=== PATIENT | male | born 1945 | race Caucasian/White ===

== ENCOUNTER 2020-09-30 15:08 | Observation (INO) | payer OTHER ==
[~2020-09-30] VITALS: Ht 172.7 cm; Wt 97.5 kg
[~2020-09-30 15:08] MED LIST: ARICEPT10 MG PO; BENTYL 10MG CAP10 MG PO; CYANOCOBAL1000 MCG/1 INJ; ECOTRIN81 MG PO; FISH OIL 1,0001 EACH PO; FLOMAX0.4 MG PO; MECLIZINE HCL25 MG PO; NORCO 5-325 TA1 EACH PO; PROTONIX40 MG PO; ZOCOR40 MG PO
[2020-09-30 16:24] LABS: HEMOGLOBIN 12.5 gm/dl (14.0-17.5); RED BLOOD COUNT 4.47 M/UL (4.20-5.50); WHITE BLOOD COUNT 6.4 K/UL (4.5-11.0)
[2020-09-30 16:45] LABS: BUN/CREATININE RATIO 13 (0-10)
[2020-09-30] MEDS ORDERED: CRESTOR20 MG PO (20:12)
[2020-09-30] MEDS ORDERED: GLUCOPHAGE 500500 MG PO (20:13)
[2020-09-30] MEDS ORDERED: GABAPENTIN300 MG PO (20:14)
[2020-09-30] MEDS ORDERED: NAMENDA10 MG PO (20:16)
[2020-09-30] MEDS ORDERED: FINASTERIDE5 MG PO (20:16)
[2020-09-30] MEDS ORDERED: NAPROXEN375 MG PO (20:18)
[2020-10-01 04:40] LABS: RED BLOOD COUNT 4.34 M/UL (4.20-5.50); WHITE BLOOD COUNT 6.2 K/UL (4.5-11.0)
[2020-10-01 05:22] LABS: BUN/CREATININE RATIO 16 (0-10)
[2020-10-02] MEDS ORDERED: GABAPENTIN100 MG PO (12:48)
== END 2020-10-02 16:25 | disposition home or self-care (01) ==
LOC: ER1 15:08 → MED SURG 4 17:41 → CDU 17:41 → MED SURG 4 18:26
PROVIDERS: Physician Assistant Medical; Preventive Medicine Occupational Medicine; ADMIT Internal Medicine
DX: R53.83 Other fatigue (principal); R53.1 Weakness; R82.5 Elevated urine levels of drugs, medicaments and biological substances; R31.9 Hematuria, unspecified; F03.90 Unspecified dementia, unspecified severity, without behavioral disturbance, psychotic disturbance, mood disturbance, and anxiety; E78.5 Hyperlipidemia, unspecified; E11.9 Type 2 diabetes mellitus without complications; N40.0 Benign prostatic hyperplasia without lower urinary tract symptoms; E66.9 Obesity, unspecified; Z68.32 Body mass index [BMI] 32.0-32.9, adult; Z20.822 Contact with and (suspected) exposure to COVID-19; Z79.82 Long term (current) use of aspirin; Z79.899 Other long term (current) drug therapy; Z79.84 Long term (current) use of oral hypoglycemic drugs
CPT/HCPCS: ECHO; 36415; 70450; 70551; 71045; 72100; 80048; 80053; 80307; 81001; 82533; 82550; 82553; 82962; 83036; 83690; 83735; 83874; 83880; 84439; 84443; 84484; 85025; 85027; 85652; 86140; 87086; 93005; 93306; 93880; 97162; 99285; G0378; U0002

== ENCOUNTER → 2021-03-31 | Outpatient (CLI) | payer MEDICARE, OTHER ==
[~2021-03-31] MED LIST changes: +CRESTOR20 MG PO; +FINASTERIDE5 MG PO; +GABAPENTIN100 MG PO; +GABAPENTIN300 MG PO; +GLUCOPHAGE 500500 MG PO; +NAMENDA10 MG PO; +NAPROXEN375 MG PO
== END ==
LOC: KOH-I 10:51
DX: R31.9 Hematuria, unspecified (principal)
CPT/HCPCS: 74018

== ENCOUNTER → 2021-04-22 | Day surgery (SDC) | payer MEDICARE, OTHER ==
[~2021-04-22] MED LIST changes: +MAGNESIUM400 MG PO; +MUCINEX600 MG PO; +VITAMIN D350 MCG PO; +ZINC50 M2 PO; +ZYRTEC10 M3 PO
== END | disposition home or self-care (01) ==
LOC: OR 06:27
PROVIDERS: Surgery
PROC: 0DJD8ZZ Inspection of Lower Intestinal Tract, Via Natural or Artificial Opening Endoscopic (ICD-10-PCS; principal; 2021-04-22 07:30)
DX: Z12.11 Encounter for screening for malignant neoplasm of colon (principal); K21.9 Gastro-esophageal reflux disease without esophagitis; I10 Essential (primary) hypertension; F03.90 Unspecified dementia, unspecified severity, without behavioral disturbance, psychotic disturbance, mood disturbance, and anxiety; N40.1 Benign prostatic hyperplasia with lower urinary tract symptoms; R33.8 Other retention of urine; E78.00 Pure hypercholesterolemia, unspecified; M54.50 Low back pain, unspecified; E11.42 Type 2 diabetes mellitus with diabetic polyneuropathy; E78.5 Hyperlipidemia, unspecified; M19.90 Unspecified osteoarthritis, unspecified site; G89.29 Other chronic pain; M54.2 Cervicalgia; E60 Dietary zinc deficiency; E55.9 Vitamin D deficiency, unspecified; Z20.822 Contact with and (suspected) exposure to COVID-19; Z86.010 Personal history of colon polyps; Z79.82 Long term (current) use of aspirin; Z79.84 Long term (current) use of oral hypoglycemic drugs; Z79.51 Long term (current) use of inhaled steroids; Z79.899 Other long term (current) drug therapy; Z87.442 Personal history of urinary calculi
CPT/HCPCS: 82962; J2001; J2704; J7030

== ENCOUNTER → 2021-12-02 | Outpatient (CLI) | payer MEDICARE, OTHER | LOC: KOH-I 12:39 | DX: M54.2 Cervicalgia (principal); M54.50 Low back pain, unspecified; R31.9 Hematuria, unspecified; M51.36 Other intervertebral disc degeneration, lumbar region | CPT/HCPCS: 72100; 74018 ==

== ENCOUNTER → 2021-12-14 | Outpatient (CLI) | payer MEDICARE, OTHER | LOC: KOH-I 10:51 | DX: R07.9 Chest pain, unspecified (principal); M25.552 Pain in left hip; M25.551 Pain in right hip; M16.0 Bilateral primary osteoarthritis of hip | CPT/HCPCS: 71101; 73522 ==

== ENCOUNTER → 2022-01-20 | Outpatient (CLI) | payer MEDICARE, OTHER | LOC: KOH-I 01-13 13:45 | DX: R29.2 Abnormal reflex (principal); R26.2 Difficulty in walking, not elsewhere classified; M47.27 Other spondylosis with radiculopathy, lumbosacral region; M53.3 Sacrococcygeal disorders, not elsewhere classified | CPT/HCPCS: 72148 ==